=== PATIENT | female | born 1990 | race Caucasian/White ===

== ENCOUNTER 2016-09-19 14:23 | Emergency (ER) | payer OTHER ==
[~2016-09-19 14:23] MED LIST: PREN29TA PO
[2016-09-19 15:20] LABS: BACTERIA, URINE RARE /hpf; BLOOD, URINE SMALL (NEG); COMMENT (UR) CULTURE INDICATED; CULTURE IF INDICATED CULTURE INDICATED; GLUCOSE,URINE NEG (NEG); KETONE, URINE TRACE mg/dL (NEG); MUCUS URINE FEW /lpf (OCC); NITRITE,URINE NEG (NEG); SQUAMOUS EPITHELIAL CELL URINE 19 /hpf (0-5); URINE COLOR YELLOW (YELLW/STRAW)
[2016-09-19] MEDS ORDERED: CEPH-460 PO (15:33)
--- NOTE | 2016-09-19 15:33 | PD ---
HPI Chief Complaint Contractions with dysuria Date Seen: Sep 19, 2016 (Doroteo Wells MD R1) Travel History International Travel<30 Days: No Contact w/Intl Traveler<30Days: No Known Affected Area: No (Doroteo Wells MD R1) History of Present Illness HPI Ms. Richardson is a 26-year-old at 38/5 presenting to the OB ED with contractions, loss of fluid, and dysuria. She states that since this morning she 's had consistent contractions at 10 minutes and on the pain scale. She describes the pain as intense pressure in her lower abdominal area. She does endorse a loss of fluid while she took a shower this afternoon. She noticed that the fluid was yellow tinged but could not quantify it as she was in the shower. She endorses good movement with no discharge or bleeding. She also complains of dysuria with a subjective fever last night. Otherwise the has been uncomplicated and is scheduled for a repeat on with Dr. Carlson. She does endorse early marijuana and tobacco use during this . (Doroteo Wells MD R1) History Past Medical History Narrative Medical None reported (Doroteo Wells MD R1) Obstetric History Obstetric History 1- due to distress at 39 weeks (Doroteo Wells MD R1) Past Surgical History Narrative Surgical TNA (Doroteo Wells MD R1) Family History Narrative Family History None reported (Doroteo Wells MD R1) Social History Alcohol Use: No Tobacco Use: No (1 pack per day prior to , states she quit once she was ) Substance Abuse: No (marijuana use prior to , quit when she became ) (Doroteo Wells MD R1) Allergies-Medications (Allergen,Severity, Reaction): Coded Allergies: *MDRO Multi-Drug Resistant Organism (Verified Allergy, Unknown, 09/18/16) MRSA 2013 Home Meds Active Scripts Cephalexin (Keflex)500 Mg [id number] Mg PO Q8H #21 CAP Ref 0 Prov:Doroteo Wells MD R1 09/19/16 Reported Medications Vit-Iron Carbonyl ( Plus Iron 29-1 mg)1 Tab Tab1 Tab PO DAILY #30 TAB Ref 0 07/31/16 Review of Systems General / Constitutional: Fever (subjective) Eyes: No: Blurred Vision HENT: No: Headaches Cardiovascular: No: Chest Pain or Discomfort, Palpitations Respiratory: No: Cough, Short of Breath Gastrointestinal: No: Nausea, Vomiting, Diarrhea Genitourinary: Dysuria, No: Discharge, Vaginal Bleeding Musculoskeletal: No: Weakness Skin: No Rash Neurologic: No: Weakness Psychiatric: No: Substance Abuse Endocrine: No: Polydipsia Hematologic/Lymphatic: No Lymph Node Enlargement (Doroteo Wells MD R1) Physical Exam Narrative GENERAL: Well-nourished, well-developed patient. SKIN: Warm and dry. HEAD: Normocephalic and atraumatic. EYES: No scleral icterus. No injection or drainage. ENT: No nasal drainage noted. Mucous membranes pink. Airway patent. NECK: Supple, trachea midline. No JVD. CARDIOVASCULAR: Regular rate and rhythm without murmurs, gallops, or rubs. RESPIRATORY: Breath sounds equal bilaterally. No accessory muscle use. ABDOMEN/GI: Abdomen soft, non-tender, bowel sounds present, no rebound, no guarding Gravid to 38 weeks size GENITOURINARY: External Genitalia: intact and normal in appearance Cervix: Posterior Dilatation: 1-2 Effacement: 2% Station: -3 Presentation: Cephalic Membranes: Intact FHT's: Category: 1 Baseline: 130 Reactive: + Variability: Moderate Decels: None EXTREMITIES: No cyanosis or edema. BACK: Nontender without obvious deformity. No CVA tenderness. NEUROLOGICAL: Awake and alert. Motor and sensory grossly within normal limits. Five out of 5 muscle strength in all muscle groups. Normal speech. (Doroteo Wells MD R1) Data Data Vital Signs Reviewed: Yes Orders Vital Signs (Adult) .ON ADMISSION (09/19/16 14:45) ^ Labor Status (09/19/16 14:45) Urinalysis - C+S If Indicated (09/19/16 14:45) ^ Hydration (09/19/16 14:45) Mrsa Pcr Surveillance (09/19/16 14:45) (Doroteo Wells MD R1) [facility] Medical Record Reviewed: Yes Plan Ms. Richardson is a 26-year-old at 38/5 presenting to the OB ED with contractions, loss of fluid, and dysuria 1. IUP at 38w Continue routine antepartum care Category 1 tracing, reassuring Encourage oral hydration 2. Loss of fluid with contractions Cervical exam: 1-2 cm dilated, 50%, -3 station Not jill on tocometer Patient educated on signs of labor 3. Dysuria with subjective fever UA: Hazy, 30 protein, trace ketones, small occult blood, trace leukocyte esterase, 136 RBC, 8 WBC, rare bacteria Urine culture: Pending Keflex 500mg TID for 7 days Discharge: OB team will discharge patient home with prescription for Keflex for 7 days. Patient educated on signs of labor and when to return to the hospital for evaluation. She understands that she is scheduled for on 09/21/16 and knows the proper instructions prior to the procedure. DW: Dr. Carlson (Doroteo Wells MD R1) Diagnosis Diagnosis: Primary Impression: 38 weeks gestation of Additional Impression: UTI (urinary tract infection) Disposition: DISCHARGE HOME Condition: Stable Scripts Cephalexin (Keflex)500 Mg [id number] Mg PO Q8H #21 CAP Ref 0 Prov:Doroteo Wells MD R1 09/19/16 Addendum Remarks I rounded on the patient. I rounded with the resident. I reviewed the resident' s assessment and plan of care for this patient. I am in agreement with the plan of care for this patient. (Melisa Epps MD) Doroteo Wells MD R1 Sep 19, 2016 15:33 Melisa Epps MD Sep 19, 2016 17:38
[2016-10-01] MEDS ORDERED: IBUP-232 PO (14:38)
== END 2016-09-19 18:06 | disposition home or self-care (01) ==
LOC: HOBED 14:23
DX: O23.43 Unspecified infection of urinary tract in pregnancy, third trimester (principal); B96.89 Other specified bacterial agents as the cause of diseases classified elsewhere; Z3A.38 38 weeks gestation of pregnancy
CPT/HCPCS: 59025; 81001; 84112; 87086; 87641

== ENCOUNTER 2016-09-21 07:56 | Inpatient (IN) | payer OTHER ==
[~2016-09-21] VITALS: Ht 162.6 cm; Wt 80.7 kg
[~2016-09-21 07:56] MED LIST changes: +CEPH-460 PO
[2016-09-21] MEDS ORDERED: LACTATED RINGER'S 1000 ML INJ 1,000 ML IV ONE (08:36)
--- NOTE | 2016-09-21 08:36 | HHI.HP ---
HPI Chief Complaint Scheduled repeat C/S Date Seen: Sep 21, 2016 Time Seen: 08:28 (Ayo Tejeda MD R2) Travel History International Travel<30 Days: No Contact w/Intl Traveler<30Days: No Known Affected Area: No (Ayo Tejeda MD R2) History of Present Illness HPI 26-year-old presenting at 39/0 weeks gestation, for repeat . Today, she has been feeling better since starting Keflex on Saturday09/19/2016. She denies loss of fluid or vaginal bleeding. She endorses positive movement. She denies any contractions or abdominal pain. She has no allergies to medications. She had smoked marijuana and tobacco early during , however quit at 8 weeks gestation. No history of clotting or bleeding disorders. (Ayo Tejeda MD R2) History Past Medical History Medical History: Denies Significant Hx (Ayo Tejeda MD R2) Obstetric History Obstetric History Previous emergent at 39 weeks, in 2011 Transverse incision (Ayo Tejeda MD R2) Past Surgical History Narrative Surgical (Ayo Tejeda MD R2) Family History Family History: Negative (Ayo Tejeda MD R2) Social History Alcohol Use: No Tobacco Use: Yes (early in , quit at 8 weeks gestation) Substance Abuse: Yes (marijuana early in ) (Ayo Tejeda MD R2) Allergies-Medications (Allergen,Severity, Reaction): Coded Allergies: *MDRO Multi-Drug Resistant Organism (Verified Allergy, Unknown, 09/18/16) MRSA 2013 Home Meds Active Scripts Cephalexin (Keflex)500 Mg [id number] Mg PO Q8H #21 CAP Ref 0 Prov:Doroteo Wells MD R1 09/19/16 Reported Medications Vit-Iron Carbonyl ( Plus Iron 29-1 mg)1 Tab Tab1 Tab PO DAILY #30 TAB Ref 0 07/31/16 Review of Systems Except as stated in HPI: all other systems reviewed are Neg (Ayo Tejeda MD R2 ) Physical Exam Narrative GENERAL: Well-nourished, well-developed patient. SKIN: Warm and dry. HEAD: Normocephalic and atraumatic. EYES: No scleral icterus. No injection or drainage. ENT: No nasal drainage noted. Mucous membranes pink. Airway patent. NECK: Supple, trachea midline. No JVD. CARDIOVASCULAR: Regular rate and rhythm without murmurs, gallops, or rubs. RESPIRATORY: Breath sounds equal bilaterally. No accessory muscle use. BREASTS: Bilateral exam showed no masses , no retractions, no nipple discharge. ABDOMEN/GI: Abdomen soft, non-tender, bowel sounds present, no rebound, no guarding Gravid to 39 weeks GENITOURINARY: External Genitalia: intact and normal in appearance Membranes: intact Uterine Contractions: none FHT's: Category: 2 Baseline: 150 Reactive: Y Variability: moderate Decels: +/- EXTREMITIES: No cyanosis or edema. BACK: Nontender without obvious deformity. NEUROLOGICAL: Awake and alert. Motor and sensory grossly within normal limits. (Ayo Tejeda MD R2) Data Data Vital Signs Reviewed: Yes (Ayo Tejeda MD R2) Assessment/Plan Problem List: (1) UTI (urinary tract infection) (2) deliv due to previous difficult deliv, deliv, curr hospitaliz Assessment and Plan 26-year-old at 39/0 weeks gestation with previous transverse in 2011, presenting for repeat . IUP: Scheduled Cefazolin 2 g 30 minutes prior to incision Continuous heart tracing Type and cross Anticipate normal necessary and delivery. We'll discuss with Dr. Carlson (Ayo Tejeda MD R2) Addendum Remarks I rounded on the patient. I rounded with the resident. I reviewed the resident' s assessment and plan of care for this patient. I am in agreement with the plan of care for this patient. (Melisa Epps MD) Ayo Tejeda MD R2 Sep 21, 2016 08:35 Melisa Epps MD Sep 21, 2016 10:21
[2016-09-21 08:58] LABS: BASOPHIL # 0.1 TH/MM3 (0-0.2); BASOPHIL % 0.7 % (0.0-2.0); EOSINOPHIL # 0.2 TH/MM3 (0-0.4); EOSINOPHIL % 1.5 % (0.0-4.0); HEMATOCRIT 40.9 % (35.0-46.0); HEMO FLAGS DIFF FINAL; LYMPH % 16.1 % (9.0-44.0); LYMPHOCYTE # 1.8 TH/MM3 (1.0-4.8); MEAN CELL VOLUME 92.3 FL (80.0-100.0); MEAN CORPUSCULAR HEMOGLOBIN 31.2 PG (27.0-34.0); MEAN CORPUSCULAR HGB CONC 33.7 % (32.0-36.0); MONO % 9.5 % (0.0-8.0); NEUT % 72.2 % (16.0-70.0); PLATELET COUNT 208 TH/MM3 (150-450); RED BLOOD COUNT 4.43 MIL/MM3 (4.00-5.30); RED CELL DISTRIBUTION WIDTH 12.7 % (11.6-17.2); WHITE BLOOD COUNT 11.1 TH/MM3 (4.0-11.0)
[2016-09-21] MEDS ORDERED: LACTATED RINGER'S 1000 ML INJ 1,000 ML IV SCH (09:06)
[2016-09-21 09:11] LABS: BACTERIA, URINE FEW /hpf; BLOOD, URINE NEG (NEG); COMMENT (UR) CULT NOT INDICATED; CULTURE IF INDICATED CULT NOT INDICATED; GLUCOSE,URINE NEG (NEG); KETONE, URINE NEG (NEG); MUCUS URINE FEW /lpf (OCC); NITRITE,URINE NEG (NEG); SQUAMOUS EPITHELIAL CELL URINE 7 /hpf (0-5); URINE COLOR YELLOW (YELLW/STRAW)
[2016-09-21 09:30] VITALS: BP 127/82; PULSE 99
[2016-09-21] MEDS ORDERED: OXYTOCIN 10 UNIT/ML AMP ONE (09:35)
[2016-09-21] MEDS ORDERED: ceFAZolin 2 GM PREMIX 50 ML IV SCH (09:45)
[2016-09-21 10:00] VITALS: BP 131/89; PULSE 92
[2016-09-21] MEDS ORDERED: CITRIC ACID-SODIUM CITRATE LIQ 30 ML UDC PO SCH (10:15)
[2016-09-21] MEDS ORDERED: EPIDURAL-DIPHENHYDRAMINE HCL 50 MG CAP PO PRN (10:30)
[2016-09-21] MEDS ORDERED: EPIDURAL-DO NOT ADMINISTER ANTICOAGULANTS XX PRN (10:30)
[2016-09-21] MEDS ORDERED: EPIDURAL-NALOXONE HCL 0.4 MG/ML AMP IV PRN (10:30)
[2016-09-21] MEDS ORDERED: EPIDURAL-NO SYSTEMIC NARCOTICS XX PRN (10:30)
[2016-09-21] MEDS ORDERED: OXYTOCIN 30 UNITS-500ML PREMIX 500 ML IV ONE (11:45)
[2016-09-21] MEDS ORDERED: DOCUSATE SODIUM 50 MG/SENNA 8.6 MG TAB PO PRN (11:45)
[2016-09-21] MEDS ORDERED: SODIUM CHLORIDE 0.9% FLUSH 5 ML FLUSH IV PRN (11:45)
[2016-09-21] MEDS ORDERED: ZOLPIDEM TARTRATE 5 MG TAB PO PRN (11:45)
[2016-09-21] MEDS ORDERED: ACETAMINOPHEN 325 MG TAB PO PRN (11:45)
[2016-09-21] MEDS ORDERED: ONDANSETRON HCL 4 MG/2 ML VIAL IV PUSH PRN (11:45)
[2016-09-21] MEDS ORDERED: SIMETHICONE 80 MG CHEWABLE TAB PO PRN (11:45)
[2016-09-21] MEDS ORDERED: MORPHINE SULFATE PF 5 MG/10 ML VIAL ONE (11:55)
[2016-09-21] MEDS ORDERED: ONDANSETRON HCL 4 MG/2 ML VIAL ONE (11:55)
[2016-09-21] MEDS ORDERED: ACETAMINOPHEN 1000 MG/100 ML VIAL IV ONE ×2 (12:33→14:00)
[2016-09-21 12:49] VITALS: BP 128/81; PULSE 75; RESP 18; TEMP 97.8; O2SAT 97
--- NOTE | 2016-09-21 12:53 | PD.OP ---
Operative Report Date of Surgery: Sep 21, 2016 Preoperative Diagnosis: Intrauterine at 39 weeks Previous section Postoperative Diagnosis: Same Face presentation Procedure: Repeat low segment transverse section Vacuum-assisted delivery Anesthesia: Spinal Surgeon: Melisa Carlson Director Of Payroll(s): OR staff Resident Surgeon: Dr. Tamia Rushing Operation and Findings: Anesthesia: (Spinal ) Anesthesiologist:: (Dr Daniel ) Estimated blood loss: (600 cc ) Sponge and instrument count: (Correct ) Drains: ( None) Complications: (None) Indications for procedure: (Previous 1 declines ) Findings: (Viable male weight 7 lbs. 3 oz. equaling 3275 g Apgars of 7 at 1 minute 9 at 5 minutes Face presentation which required vacuum assistance to rotate the caput ) Timeout done The patient was taken to the operating room after appropriate levels of spinal anesthesia were achieved she was placed in the supine position. A Chaney catheter was inserted under sterile conditions and draining adequate clear urine. Intermittent compression hoses were placed and functioning. Bovie pad was placed and grounded. The abdomen was shaved prepped and draped in the usual sterile fashion. A transverse Pfannenstiel incision was made carried down through the skin subcutaneous tissue. The fascia was opened transversely. from the muscles in the midline. The rectus muscles were . Peritoneal cavity opened and the abdominal cavity entered. Upon entering the abdomen patient had multiple adhesions the bladder was pulled up high on the uterus requiring lysis of adhesions The bladder flap was taken down transversely and a low segment transverse incision made into the lower uterine segment. The fluid was (clear ). The infant was a face presentation which required a Kiwi vacuum on the flexion point to rotate the vertex The vertex was delivered nose and mouth suctioned well the remainder of the body was then delivered. Cord doubly clamped and cut and the handed over to the awaiting nursing staff. The placenta spontaneously delivered intact with fundal massage. The uterus was then exteriorized cleaned of excessive blood and debris. The incision was then closed with 0 chromic in a continuous interlocking stitch. Single-layer closure No active bleeding. Tubes and ovaries were inspected and found to be normal. The abdominal cavity was then irrigated. The uterus placed back into the abdomen. Paracolic gutters cleaned of excessive blood and debris. Interceed was then placed over the incision and the anterior surface of the uterus in an inverted T. The peritoneum was then closed with 2-0 Vicryl. The muscles reapproximated. Inspection of the muscle bed demonstrated no bleeding. . The fascia was then closed with 0 Vicryl in a continuous stitch. The subcutaneous tissue was irrigated bleeders controlled with Bovie. Brittany's fascia closed with 2-0 Vicryl. The skin was closed using ( subcuticular stitch with 3-0 Monocryl). The uterus was massaged clearing blood and clots. The patient was cleaned. Pressure dressing and abdominal binder placed. Patient then transferred to the recovery room in stable condition, where her vital signs are stable ( ). Urine is clear and adequate. Baby transferred to the nursery in stable condition. Melisa Epps MD Sep 21, 2016 12:53
[2016-09-21 14:30] VITALS: BP 122/70; PULSE 75; RESP 16; TEMP 97.9
[2016-09-21] MEDS: EPIDURAL-DIPHENHYDRAMINE HCL 50 MG/ML VIAL IV PUSH PRN (17:57)
[2016-09-21] MEDS ORDERED: PROMETHAZINE INJ 25 MG/ML VIAL IM PRN (18:30)
[2016-09-21] MEDS ORDERED: KETOROLAC TROMETHAMINE 30 MG/ML (IVP) VIAL IV PUSH PRN (19:00)
--- NOTE | 2016-09-21 19:05 | HHI.PCNN ---
Objective Patient Weight 80.739 kg Exam General Appearance: Appropriate for Gestational Age Skin: Normal Jaundice: No Head: Normal Eyes Red Reflex: Normal Ears, Nose & Throat: Normal Thorax: Normal Lungs: Normal Heart: Normal Peripheral Pulses: Normal Abdomen: Normal Genitals: Normal Trunk and Spine: Normal Extremities: Normal Clavicles: Normal Hips: Stable Anus: Normal Impression Condition on Discharge Stable Mathew Hart MD R1 Sep 21, 2016 19:05
[2016-09-21 19:58] VITALS: BP 114/72; PULSE 84; RESP 18; TEMP 98.5
[2016-09-21] MEDS: LACTATED RINGER'S 1000 ML INJ 1,000 ML IV SCH (20:01)
[2016-09-21] MEDS: SODIUM CHLORIDE 0.9% FLUSH 5 ML FLUSH IV SCH (20:01)
[2016-09-21] MEDS: oxyCODONE/ACETAMINOPHEN 5 MG/325 MG TAB PO PRN (21:21)
[2016-09-21] MEDS ORDERED: OXYTOCIN 30 UNITS-500ML PREMIX 500 ML IV PRN (21:45)
[2016-09-21 23:30] VITALS: BP 102/69; PULSE 94; RESP 18; TEMP 98.8
[2016-09-22 04:00] VITALS: BP 127/66; PULSE 95; RESP 18; TEMP 98.3
[2016-09-22] MEDS: EPIDURAL-DIPHENHYDRAMINE HCL 50 MG/ML VIAL IV PUSH PRN (04:22)
[2016-09-22] MEDS: oxyCODONE/ACETAMINOPHEN 5 MG/325 MG TAB PO PRN ×4 (04:22→21:24)
[2016-09-22] MEDS: IBUPROFEN 600 MG TAB PO PRN ×3 (04:22→15:59)
[2016-09-22] MEDS: LACTATED RINGER'S 1000 ML INJ 1,000 ML IV SCH (04:23)
[2016-09-22 05:45] LABS: AUTOMATED NEUTROPHIL # 10.4 TH/MM3 (1.8-7.7); BASOPHIL # 0.1 TH/MM3 (0-0.2); BASOPHIL % 0.6 % (0.0-2.0); EOSINOPHIL # 0.1 TH/MM3 (0-0.4); HEMATOCRIT 36.3 % (35.0-46.0); HEMO FLAGS DIFF FINAL; LYMPH % 9.6 % (9.0-44.0); LYMPHOCYTE # 1.3 TH/MM3 (1.0-4.8); MEAN CELL VOLUME 91.9 FL (80.0-100.0); MEAN CORPUSCULAR HEMOGLOBIN 31.2 PG (27.0-34.0); MONO % 9.7 % (0.0-8.0); NEUT % 79.1 % (16.0-70.0); PLATELET COUNT 189 TH/MM3 (150-450); RED BLOOD COUNT 3.95 MIL/MM3 (4.00-5.30); RED CELL DISTRIBUTION WIDTH 12.7 % (11.6-17.2); WHITE BLOOD COUNT 13.1 TH/MM3 (4.0-11.0)
--- NOTE | 2016-09-22 09:20 | HHI.OB ---
Subjective Post Operative Day: 1 Remarks Postoperative day number 1. AFVSS overnight. Pain controlled. Incision not draining. Decreased lochia. Denies dysuria. No breast tenderness. She is feeding the baby via breast. Appetite good. No nausea or vomiting. Positive flatus. Negative bowel movement. Ambulating well. Denies calf pain, shortness of breath, or cough. Otherwise, she is doing well this morning and has no other complaints. Objective Vitals/I&O Vital Signs Date Time Temp Pulse Resp B/P Pulse Ox O2 Delivery O2 Flow Rate FiO2 09/22/16 04:00 98.3 95 18 127/66 09/21/16 23:30 98.8 94 18 09/21/16 23:30 102/69 09/21/16 19:58 98.5 84 18 114/72 09/21/16 14:30 97.9 75 16 122/70 09/21/16 12:49 97.8 18 97 09/21/16 12:49 75 128/81 09/21/16 10:00 92 131/89 09/21/16 09:30 99 127/82 Result Diagram: 09/22/16 0536 Objective Remarks GENERAL: Well-nourished, well-developed patient. CARDIOVASCULAR: Regular rate and rhythm without murmurs, gallops, or rubs. RESPIRATORY: Breath sounds equal bilaterally. No accessory muscle use. ABDOMEN/GI: Abdomen soft, non-tender, bowel sounds present. Incision: Clean, dry and intact. Fundus: Firm, non-tender at umbilicus. GENITOURINARY: Light to moderate bleeding. EXTREMITIES: No cyanosis or edema, non-tender, without signs of DVT. Medications and IVs Current Medications Medications (Trade) Dose Ordered Sig/Lucinda Route Start Time Stop Time Status Last Admin (Lr 1000 ml Inj) 1,000 ml @ 100 mls/hr Q10H IV 09/21/16 16:41 09/22/16 12:40 09/22/16 04:23 (NS Flush) 2 ml BID IV 09/21/16 21:00 (NS Flush) 2 ml UNSCH PRN IV 09/21/16 11:45 09/22/16 04:37 (Mylicon Chew) 80 mg QID PRN PO 09/21/16 11:45 (Tylenol) 650 mg Q6H PRN PO 09/21/16 11:45 (Motrin) 600 mg Q6H PRN PO 09/21/16 11:45 09/22/16 04:22 (Percocet 5-325 Mg) 1 tab Q4H PRN PO 09/21/16 11:45 09/22/16 04:22 (Percocet 5-325 Mg) 2 tab Q4H PRN PO 09/21/16 11:45 (Apryl-Colace) 2 tab Q12H PRN PO 09/21/16 11:45 (Ambien) 5 mg HS PRN PO 09/21/16 11:45 (M-M-R Ii Inj) 0.5 ml ONCE ONCE SQ 09/22/16 16:00 09/22/16 16:01 (Boostrix Inj) 0.5 ml ONCE ONCE IM 09/22/16 16:00 09/22/16 16:01 (Zofran Inj) 4 mg Q6H PRN IV PUSH 09/21/16 11:45 09/21/16 14:26 Miscellaneous Information NO SYSTEMIC NARCOTICS TO BE GIVEN FO... UNSCH PRN XX 09/21/16 10:30 09/22/16 10:29 (Narcan Inj) 0.4 mg UNSCH PRN IV 09/21/16 10:30 09/22/16 10:29 (Benadryl Inj) 25 mg Q6H PRN IV PUSH 09/21/16 10:30 09/22/16 10:29 09/22/16 04:22 (Benadryl) 50 mg Q6H PRN PO 09/21/16 10:30 09/22/16 10:29 Miscellaneous Information ALL NURSING DEPARTMENTS UNSCH PRN XX 09/21/16 10:30 09/22/16 10:29 (Toradol Inj) 30 mg Q6H PRN IV PUSH 09/21/16 19:00 09/21/16 21:20 (Phenergan Inj) 25 mg Q4H PRN IM 09/21/16 18:30 Assessment/Plan Problem List: (1) UTI (urinary tract infection) (2) deliv due to previous difficult deliv, deliv, curr hospitaliz Assessment and Plan 26 y/o female who is POD# 1 s/p CXN. -Continue routine care. -Percocet and Motrin PRN pain. -Encouraged OOB. Advised pelvic rest for 6 wks. Will need a f/u appt. in 1 wk for incision check. -Re: ctrl, she is undecided at this time. -D/c in 1-2 more days. wdw OB attending Discharge Planning Discharge home in next 1-[address] MD R2 Sep 22, 2016 09:20
[2016-09-22] MEDS ORDERED: DIPHTH/TETANUS/ACEL PERTUSSIS (BOOSTER) 0.5 ML VIAL/PFS IM ONE (16:00)
[2016-09-22] MEDS ORDERED: MEASLES, MUMPS, RUBELLA VACCINE 0.5 ML VIAL SQ ONE (16:00)
[2016-09-22 21:00] VITALS: BP 115/66; PULSE 84; RESP 16; TEMP 98.1
[2016-09-23] MEDS: IBUPROFEN 600 MG TAB PO PRN ×3 (04:09→16:16)
[2016-09-23] MEDS: oxyCODONE/ACETAMINOPHEN 5 MG/325 MG TAB PO PRN ×4 (04:09→21:40)
[2016-09-23 08:15] VITALS: BP 137/71; PULSE 84; RESP 18; TEMP 98.4
--- NOTE | 2016-09-23 08:17 | HHI.OB ---
Subjective Post Operative Day: 2 Remarks Postoperative day number 2. AFVSS overnight. Pain controlled. Incision not draining. Decreased lochia. Denies dysuria. No breast tenderness. She is feeding the baby via bottle. Appetite good. No nausea or vomiting. Positive flatus. Negative bowel movement. Ambulating well. Denies calf pain, shortness of breath, or cough. Otherwise, she is doing well this morning and has no other complaints. Objective Vitals/I&O Vital Signs Date Time Temp Pulse Resp B/P Pulse Ox O2 Delivery O2 Flow Rate FiO2 09/22/16 21:00 84 115/66 09/22/16 21:00 98.1 16 Result Diagram: 09/22/16 0536 Objective Remarks GENERAL: Well-nourished, well-developed patient. CARDIOVASCULAR: Regular rate and rhythm without murmurs, gallops, or rubs. RESPIRATORY: Breath sounds equal bilaterally. No accessory muscle use. ABDOMEN/GI: Abdomen soft, non-tender, bowel sounds present. Incision: Clean, dry and intact. Fundus: Firm, non-tender at umbilicus. GENITOURINARY: Light to moderate bleeding. EXTREMITIES: No cyanosis or edema, non-tender, without signs of DVT. Medications and IVs Current Medications Medications (Trade) Dose Ordered Sig/Lucinda Route Start Time Stop Time Status Last Admin (NS Flush) 2 ml BID IV 09/21/16 21:00 (NS Flush) 2 ml UNSCH PRN IV 09/21/16 11:45 09/22/16 04:37 (Mylicon Chew) 80 mg QID PRN PO 09/21/16 11:45 (Tylenol) 650 mg Q6H PRN PO 09/21/16 11:45 (Motrin) 600 mg Q6H PRN PO 09/21/16 11:45 09/23/16 04:09 (Percocet 5-325 Mg) 1 tab Q4H PRN PO 09/21/16 11:45 09/22/16 15:59 (Percocet 5-325 Mg) 2 tab Q4H PRN PO 09/21/16 11:45 09/23/16 04:09 (Apryl-Colace) 2 tab Q12H PRN PO 09/21/16 11:45 (Ambien) 5 mg HS PRN PO 09/21/16 11:45 (Zofran Inj) 4 mg Q6H PRN IV PUSH 09/21/16 11:45 09/21/16 14:26 (Toradol Inj) 30 mg Q6H PRN IV PUSH 09/21/16 19:00 09/21/16 21:20 (Phenergan Inj) 25 mg Q4H PRN IM 09/21/16 18:30 Assessment/Plan Problem List: (1) UTI (urinary tract infection) (2) deliv due to previous difficult deliv, deliv, curr hospitaliz Assessment and Plan 26 y/o female who is POD# 2 s/p CXN. -Continue routine care. -Percocet and Motrin PRN pain. -Encouraged OOB. Advised pelvic rest for 6 wks. Will need a f/u appt. in 1 wk for incision check. -Re: ctrl, she is undecided at this time. -D/c planned for tomorrow wdw OB attending Discharge Planning Discharge home planned for tomorrow To Lane MD R2 Sep 23, 2016 08:17
[2016-09-23] MEDS: SODIUM CHLORIDE 0.9% FLUSH 5 ML FLUSH IV SCH (09:00)
--- NOTE | 2016-09-23 09:09 | HHI.OB ---
Subjective Post Operative Day: 2 Remarks Postoperative day 2 the scheduled patient with repeat done 2 days ago. She is doing well progress advancement of diet and ambulation showed no sign of pulmonary or thromboembolic complication she is tolerating her diet ambulating well and as normal bowel and bladder function, seen the patient with the family medicine residents and agree with their evaluation plan this patient to be discharged tomorrow Objective Vitals/I&O Vital Signs Date Time Temp Pulse Resp B/P Pulse Ox O2 Delivery O2 Flow Rate FiO2 09/23/16 08:15 84 18 137/71 09/23/16 08:15 98.4 09/22/16 21:00 84 115/66 09/22/16 21:00 98.1 16 Result Diagram: 09/22/16 0536 Objective Remarks GENERAL: Well-nourished, well-developed patient. CARDIOVASCULAR: Regular rate and rhythm without murmurs, gallops, or rubs. RESPIRATORY: Breath sounds equal bilaterally. No accessory muscle use. ABDOMEN/GI: Abdomen soft, non-tender, bowel sounds present. Incision: Clean, dry and intact. Fundus: Firm, non-tender at umbilicus. GENITOURINARY: Light to moderate bleeding. EXTREMITIES: No cyanosis or edema, non-tender, without signs of DVT. Medications and IVs Current Medications Medications (Trade) Dose Ordered Sig/Lucinda Route Start Time Stop Time Status Last Admin (NS Flush) 2 ml BID IV 09/21/16 21:00 (NS Flush) 2 ml UNSCH PRN IV 09/21/16 11:45 09/22/16 04:37 (Mylicon Chew) 80 mg QID PRN PO 09/21/16 11:45 (Tylenol) 650 mg Q6H PRN PO 09/21/16 11:45 (Motrin) 600 mg Q6H PRN PO 09/21/16 11:45 09/23/16 04:09 (Percocet 5-325 Mg) 1 tab Q4H PRN PO 09/21/16 11:45 09/22/16 15:59 (Percocet 5-325 Mg) 2 tab Q4H PRN PO 09/21/16 11:45 09/23/16 04:09 (Apryl-Colace) 2 tab Q12H PRN PO 09/21/16 11:45 (Ambien) 5 mg HS PRN PO 09/21/16 11:45 (Zofran Inj) 4 mg Q6H PRN IV PUSH 09/21/16 11:45 09/21/16 14:26 (Toradol Inj) 30 mg Q6H PRN IV PUSH 09/21/16 19:00 09/21/16 21:20 (Phenergan Inj) 25 mg Q4H PRN IM 09/21/16 18:30 Assessment/Plan Problem List: (1) UTI (urinary tract infection) (2) deliv due to previous difficult deliv, deliv, curr hospitaliz Assessment and Plan 26 y/o female who is POD# 2 s/p CXN. -Continue routine care. -Percocet and Motrin PRN pain. -Encouraged OOB. Advised pelvic rest for 6 wks. Will need a f/u appt. in 1 wk for incision check. -Re: ctrl, she is undecided at this time. -D/c planned for tomorrow wdw OB attending Discharge Planning Discharge home planned for tomorrow Solomon Burrell II, MD Sep 23, 2016 09:09
[2016-09-24] MEDS: oxyCODONE/ACETAMINOPHEN 5 MG/325 MG TAB PO PRN ×2 (03:04→07:50)
[2016-09-24] MEDS: IBUPROFEN 600 MG TAB PO PRN (03:05)
[2016-09-24 07:50] VITALS: BP 130/85; PULSE 78; RESP 18; TEMP 98.3
[2016-09-24] MEDS ORDERED: SIME80CH PO (09:27)
[2016-09-24] MEDS ORDERED: SENN1TAB PO (09:27)
[2016-09-24] MEDS ORDERED: OXYC1TAB63 PO ×3 (09:27→10:06)
--- NOTE | 2016-09-24 09:27 | HHI.DCPOC ---
Discharge Care Plan Diagnosis: (1) deliv due to previous difficult deliv, deliv, curr hospitaliz (2) UTI (urinary tract infection) (3) with 30 completed weeks gestation Goals to Promote Your Health * To prevent worsening of your condition and complications * To maintain your health at the optimal level Directions to Meet Your Goals Take your medications as prescribed Follow your dietary instruction Follow activity as directed Keep your appointments as scheduled Take your immunizations and boosters as scheduled If your symptoms worsen call your PCP, if no PCP go to Urgent Care Center or Emergency Room Smoking is Dangerous to Your Health. Avoid second hand smoke Call the 24-hour hour crisis hotline for domestic abuse at Jhoan Warren MD R1 Sep 24, 2016 09:27
--- NOTE | 2016-09-24 09:50 | HHI.OB ---
Subjective Remarks 26 y/o POD 3 after . Doing well this morning. Walking around. Lochia is light. Had bowel movement. No calf tenderness. No chest pain or shortness of breath. No problems with the incision site. She has appt with Ela Hackett. Formula feeding, educated on benefits of . She is willing to give it a try. Undecided on control. (Mathew Grossman MD R2) Objective Result Diagram: 09/22/16 0536 Objective Remarks GENERAL: Well-nourished, well-developed patient. CARDIOVASCULAR: Regular rate and rhythm without murmurs, gallops, or rubs. RESPIRATORY: Breath sounds equal bilaterally. No accessory muscle use. ABDOMEN/GI: Abdomen soft, non-tender, bowel sounds present. Incision: Clean, dry and intact. Fundus: Firm, non-tender at umbilicus. GENITOURINARY: Light bleeding. EXTREMITIES: No cyanosis or edema, non-tender, without signs of DVT. Medications and IVs Current Medications Medications (Trade) Dose Ordered Sig/Lucinda Route Start Time Stop Time Status Last Admin (NS Flush) 2 ml BID IV 09/21/16 21:00 (NS Flush) 2 ml UNSCH PRN IV 09/21/16 11:45 09/22/16 04:37 (Mylicon Chew) 80 mg QID PRN PO 09/21/16 11:45 (Tylenol) 650 mg Q6H PRN PO 09/21/16 11:45 (Motrin) 600 mg Q6H PRN PO 09/21/16 11:45 09/24/16 03:05 (Percocet 5-325 Mg) 1 tab Q4H PRN PO 09/21/16 11:45 09/24/16 07:50 (Percocet 5-325 Mg) 2 tab Q4H PRN PO 09/21/16 11:45 09/24/16 03:04 (Apryl-Colace) 2 tab Q12H PRN PO 09/21/16 11:45 09/24/16 07:51 (Ambien) 5 mg HS PRN PO 09/21/16 11:45 (Zofran Inj) 4 mg Q6H PRN IV PUSH 09/21/16 11:45 09/21/16 14:26 (Toradol Inj) 30 mg Q6H PRN IV PUSH 09/21/16 19:00 09/21/16 21:20 (Phenergan Inj) 25 mg Q4H PRN IM 09/21/16 18:30 (Mathew Grossman MD R2) Assessment/Plan Problem List: (1) UTI (urinary tract infection) (2) deliv due to previous difficult deliv, deliv, curr hospitaliz Assessment and Plan 26 y/o female who is POD# 3 s/p CXN. -Percocet and Motrin PRN pain. -Encouraged OOB. Advised pelvic rest for 6 wks. Will need a f/u appt. in 1 wk for incision check. -Re: ctrl, she is undecided at this time. -D/c today. discussed with Dr. Niño Discharge Planning Discharge home planned for today (Mathew Grossman MD R2) Attending Attestation The exam, history, and the medical decision-making described in the above note were completed with the assistance of the resident provider. I reviewed and agree with the findings presented. I attest that I had a [id number] encounter with the patient on the same day, and personally performed and documented my assessment and findings in the medical record. (Rafa Niño MD) Mathew Grossman MD R2 Sep 24, 2016 09:50 Rafa Niño MD Sep 24, 2016 10:00
[2016-10-01] MEDS ORDERED: IBUP-232 PO (14:38)
== END 2016-09-24 14:07 | disposition home or self-care (01) | DRG 765 ==
LOC: H2EB 07:56 → H1EA 13:47
PROVIDERS: ADMIT Obstetrics & Gynecology; ATTEND Obstetrics & Gynecology
PROC: 10D00Z1 Extraction of Products of Conception, Low, Open Approach (ICD-10-PCS; principal; 2016-09-21)
PROC: 0UN90ZZ Release Uterus, Open Approach (ICD-10-PCS; 2016-09-21)
DX: O34.211 Maternal care for low transverse scar from previous cesarean delivery (principal); O23.43 Unspecified infection of urinary tract in pregnancy, third trimester; O32.3XX0 Maternal care for face, brow and chin presentation, not applicable or unspecified; O99.89 Other specified diseases and conditions complicating pregnancy, childbirth and the puerperium; N73.6 Female pelvic peritoneal adhesions (postinfective); Z37.0 Single live birth; Z3A.39 39 weeks gestation of pregnancy
CPT/HCPCS: 59025; 81001; 84112; 85025; 86850; 86900; 86901; 87086; 87641; C1765; J0131; J0690; J1200; J1885; J2274; J2405; J2590; J7120; Q0163

== ENCOUNTER 2016-10-02 03:26 | Emergency (ER) | payer OTHER ==
[~2016-10-02 03:26] MED LIST changes: +IBUP-232 PO; +OXYC1TAB63 PO; +SENN1TAB PO; +SIME80CH PO
[2016-10-02 03:28] VITALS: BP 119/72; PULSE 77; RESP 18; TEMP 98.2; O2SAT 99
[2016-10-02] MEDS ORDERED: SODIUM CHLORIDE 0.9% FLUSH 5 ML FLUSH IVF PRN (03:45)
[2016-10-02 04:12] VITALS: RESP 16; O2SAT 98
[2016-10-02 05:17] LABS: AUTOMATED NEUTROPHIL # 10.5 TH/MM3 (1.8-7.7); BASOPHIL # 0.1 TH/MM3 (0-0.2); BASOPHIL % 0.5 % (0.0-2.0); EOSINOPHIL # 0.3 TH/MM3 (0-0.4); EOSINOPHIL % 2.4 % (0.0-4.0); HEMATOCRIT 45.8 % (35.0-46.0); HEMO FLAGS DIFF FINAL; LYMPH % 13.7 % (9.0-44.0); LYMPHOCYTE # 1.9 TH/MM3 (1.0-4.8); MEAN CELL VOLUME 93.5 FL (80.0-100.0); MEAN CORPUSCULAR HEMOGLOBIN 31.9 PG (27.0-34.0); MEAN CORPUSCULAR HGB CONC 34.1 % (32.0-36.0); MONO % 8.4 % (0.0-8.0); PLATELET COUNT 412 TH/MM3 (150-450); RED CELL DISTRIBUTION WIDTH 12.4 % (11.6-17.2)
[2016-10-02] MEDS ORDERED: IOHEXOL 350 MG/ML 10 ML VIAL (for RAD DIAG) IV ONE (05:25)
[2016-10-02 05:27] LABS: BACTERIA, URINE RARE /hpf; BLOOD, URINE MOD (NEG); COMMENT (UR) CULTURE INDICATED; CULTURE IF INDICATED CULTURE INDICATED; GLUCOSE,URINE NEG (NEG); HYALINE CAST, URINE 1 /lpf (RARE); KETONE, URINE NEG (NEG); MUCUS URINE FEW /lpf (OCC); NITRITE,URINE NEG (NEG); RENAL EPITHELIAL CELLS <1 /hpf; SQUAMOUS EPITHELIAL CELL URINE 2 /hpf (0-5); URINE COLOR YELLOW (YELLW/STRAW)
--- NOTE | 2016-10-02 05:28 | PD ---
HPI Chief Complaint: Abdominal Pain Time Seen by Provider: 03:33 Travel History International Travel<30 days: No Contact w/Intl Traveler<30days: No History of Present Illness HPI 26 yo F s/p repeat 11 days prior c/o lower abd pain w radiation to L flank. VB started this morning, reportedly bright red, < 1 pad. pain severe starting while the pt was asleep. pt also c/o pleuritic cp without dyspnea. no fever. no n/v/d. 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 [facility] Past Medical History Bipolar Disorder: Yes Anxiety: Yes Diminished Hearing: No Kidney Stones: Yes Respiratory: Yes (BABY ASTHMA) Tetanus Vaccination: Unknown Influenza Vaccination: No ?: Unknown : 2 Para: 2 Past Surgical History Section: Yes (X2) Tonsillectomy: Yes Social History Alcohol Use: No Tobacco Use: Yes (early in , quit at 8 weeks gestation) Substance Use: No (Marijuana ) Allergies-Medications (Allergen,Severity, Reaction): Coded Allergies: *MDRO Multi-Drug Resistant Organism (Verified Allergy, Unknown, 09/18/16) MRSA 2013 Reported Meds & Prescriptions Reported Meds & Active Scripts Active Ibuprofen 600 Mg Tab 600 Mg PO Q6H PRN Senna Plus 8.6-50 mg (Sennosides-Docusate Sodium) 1 Tab Tab 2 Tab PO Q12H PRN Simethicone 80 Mg Chw 80 Mg PO QID PRN Keflex (Cephalexin) 500 Mg Cap 500 Mg PO Q8H Reported Oxycodone-Acetaminophen 5-325 mg Tab 1 Tab PO Q6H PRN Plus Iron 29-1 mg ( Vit-Iron Carbonyl) 1 Tab Tab 1 Tab PO DAILY Review of Systems Except as stated in HPI: all other systems reviewed are Neg General / Constitutional: No: Fever, Chills Cardiovascular: Positive: Chest Pain or Discomfort Gastrointestinal: Positive: Abdominal Pain Physical Exam Narrative GENERAL: 26 yo F, WNWD, NAD : Minimal tenderness throughout the vault. Red blood/fluid in vault. SKIN: Warm and dry. HEAD: Atraumatic. Normocephalic. EYES: Pupils equal and round. No scleral icterus. No injection or drainage. ENT: No nasal bleeding or discharge. Mucous membranes pink and moist. NECK: Trachea midline. No JVD. CARDIOVASCULAR: Regular rate and rhythm. RESPIRATORY: No accessory muscle use. Clear to auscultation. Breath sounds equal bilaterally. GASTROINTESTINAL: Soft. Diffuse tenderness to palpation. MUSCULOSKELETAL: Extremities without clubbing, cyanosis, or edema. No obvious deformities. NEUROLOGICAL: Awake and alert. No obvious cranial nerve deficits. Motor grossly within normal limits. Five out of 5 muscle strength in the arms and legs. Normal speech. PSYCHIATRIC: Appropriate mood and affect; insight and judgment normal. Data Data Last Documented VS Vital Signs Date Time Temp Pulse Resp B/P Pulse Ox O2 Delivery O2 Flow Rate FiO2 10/02/16 04:12 16 98 Room Air 10/02/16 03:28 98.2 77 Orders Complete Blood Count With Diff (10/02/16 03:44) Urinalysis - C+S If Indicated (10/02/16 03:44) Ct Abd/Pel W Iv Contrast(Rout) (10/02/16 03:44) Iv Access Insert/Monitor (10/02/16 03:44) Ecg Monitoring (10/02/16 03:44) Oximetry (10/02/16 03:44) Sodium Chloride 0.9% Flush (Ns Flush) (10/02/16 03:45) Electrocardiogram (10/02/16 03:44) Troponin I (10/02/16 03:44) Ct Pulmonary Angiogram (10/02/16 03:44) Ed Urine Pregnancytest Poc (10/02/16 03:44) Comprehensive Metabolic Panel (10/02/16 03:44) Lipase (10/02/16 03:44) Iohexol 350 Inj (Omnipaque 350 Inj) (10/02/16 05:25) Urine Culture (10/02/16 04:45) Labs Laboratory Tests Test 10/02/16 10/02/16 04:45 04:50 Urine Color YELLOW Urine Turbidity CLEAR Urine pH 6.0 Urine Specific [employer] 1.013 Urine Protein NEG mg/dL Urine Glucose (UA) NEG mg/dL Urine Ketones NEG mg/dL Urine Occult Blood MOD Urine Nitrite NEG Urine Bilirubin NEG Urine Urobilinogen LESS THAN 2.0 MG/DL Urine Leukocyte Esterase MOD Urine RBC 127 /hpf Urine WBC 8 /hpf Urine Squamous Epithelial 2 /hpf Cells Urine Renal Epithelial Cells <1 /hpf Urine Bacteria RARE /hpf Urine Hyaline Casts 1 /lpf Urine Mucus FEW /lpf Microscopic Urinalysis Comment CULTURE INDICATED White Blood Count 14.0 TH/MM3 Red Blood Count 4.90 MIL/MM3 Hemoglobin 15.7 GM/DL Hematocrit 45.8 % Mean Corpuscular Volume 93.5 FL Mean Corpuscular Hemoglobin 31.9 PG Mean Corpuscular Hemoglobin 34.1 % Concent Red Cell Distribution Width 12.4 % Platelet Count 412 TH/MM3 Mean Platelet Volume 9.4 FL Neutrophils (%) (Auto) 75.0 % Lymphocytes (%) (Auto) 13.7 % Monocytes (%) (Auto) 8.4 % Eosinophils (%) (Auto) 2.4 % Basophils (%) (Auto) 0.5 % Neutrophils # (Auto) 10.5 TH/MM3 Lymphocytes # (Auto) 1.9 TH/MM3 Monocytes # (Auto) 1.2 TH/MM3 Eosinophils # (Auto) 0.3 TH/MM3 Basophils # (Auto) 0.1 TH/MM3 CBC Comment DIFF FINAL Differential Comment Sodium Level 143 MEQ/L Potassium Level 3.7 MEQ/L Chloride Level 104 MEQ/L Carbon Dioxide Level 26.3 MEQ/L Anion Gap 13 MEQ/L Blood Urea Nitrogen 17 MG/DL Creatinine 0.83 MG/DL Estimat Glomerular Filtration 84 ML/MIN Rate Random Glucose 83 MG/DL Calcium Level 9.2 MG/DL Total Bilirubin 0.2 MG/DL Aspartate Amino Transf 39 U/L (AST/SGOT) Alanine Aminotransferase 39 U/L (ALT/SGPT) Alkaline Phosphatase 169 U/L Troponin I LESS THAN 0.02 NG/ML Total Protein 8.0 GM/DL Albumin 3.2 GM/DL Lipase 177 U/L [facility] Medical Decision Making Medical Screen Exam Complete: Yes Emergency Medical Condition: Yes Medical Record Reviewed: Yes Differential Diagnosis Acute anemia, hemorrhage, UTI, PE, pneumothorax, pneumonia, atelectasis Narrative Course CBC & BMP Diagram 10/02/16 04:50 LFTs normal UA: hematuria Lipase normal Tn < 0.02 Last [address] Angiography 10/02/16343 Signed Impressions: Service Date/Time: Sunday, October 02, 2016 05:11 - CONCLUSION: Normal examination. Yakov Koo MD Abdomen/Pelvis CT 10/02/164 Signed Impressions: Service Date/Time: Sunday, October 02, 2016 05:11 - CONCLUSION: Post uterus. Bladder findings as above. Gallstones. Yakov Koo MD Pt has rested comfortably throughout ER stay. D/w Dr Delacruz, OB Hospitalist. Pt to follow up with [facility]. Return precautions discussed. Diagnosis Primary Impression: Vaginal bleeding Additional Impression: Chest pain Qualified Code: R07.1 - Chest pain on breathing Referrals: [facility] 1 day Additional Instructions: You have a choice when it comes to health care, and we are glad that you chose [facility]. Hopefully, we have met your expectations on today's visit. You are welcome to return to [facility] at any time, as we are committed to meeting the health care needs of our community. Med/Other Pt SpecificInfo: No Change to Meds Disposition: 01 DISCHARGE HOME Condition: John Valadez MD Oct 02, 2016 05:28
[2016-10-02 05:35] LABS: ANION GAP 13 MEQ/L (5-15); AST (GOT) 39 U/L (15-37); BICARBONATE 26.3 MEQ/L (21.0-32.0); BLOOD UREA NITROGEN 17 MG/DL (7-18); CHLORIDE 104 MEQ/L (98-107); GLOMERULAR FILTRATION RATE 84 ML/MIN (>89); POTASSIUM 3.7 MEQ/L (3.5-5.1); SODIUM (NA) 143 MEQ/L (136-145)
[2016-10-02 05:40] LABS: ALKALINE PHOSPHATASE 169 U/L (45-117); ALT (GPT) 39 U/L (10-53); TOTAL BILIRUBIN ADULT 0.2 MG/DL (0.2-1.0)
--- NOTE | 2016-10-02 05:48 | RADRPT ---
EXAM DATE/TIME: 10/02/2016 05:11 [facility] COMPARISON: No previous studies available for comparison. INDICATIONS : Chest pain and short of breath. IV CONTRAST: 80 cc Omnipaque 350 (iohexol) IV ; Cumulative dose for multiple exams. RADIATION DOSE: 23.21 CTDIvol (mGy) MEDICAL HISTORY : Renal calculi. Methicillin-resistant Staphylococcus aureus. SURGICAL HISTORY : section. ENCOUNTER: Initial ACUITY: 1 day PAIN SCALE: 9/10 LOCATION: chest TECHNIQUE: Volumetric scanning of the chest was performed using a pulmonary embolism protocol MIP images were re constructed. Using automated exposure control and adjustment of the mA and/or kV according to patien t size, radiation dose was kept as low as reasonably achievable to obtain optimal diagnostic quality images. FINDINGS: PULMONARY ARTERIES: No filling defects are seen in the pulmonary arteries through the segmental level. LUNGS: There is no consolidation or pneumothorax . No concerning pulmonary nodule is visualized. PLEURAE: There is no pleural thickening or pleural effusion. MEDIASTINUM: There is good visualization of the great vessels of the middle mediastinum. No evidence of mediastin al or hilar adenopathy/mass. MUSCULOSKELETAL: Within normal limits for patient age. MISCELLANEOUS: The visualized upper abdominal organs demonstrate no acute abnormality. CONCLUSION: Normal examination. Yakov Koo MD on October 02, 2016 at 5:44 Board Certified Radiologist. This report was verified electronically.
--- NOTE | 2016-10-02 05:57 | RADRPT ---
EXAM DATE/TIME: 10/02/2016 05:11 [facility] COMPARISON: CT ABDOMEN & PELVIS W/O CONTRAST, December 29, 2014, 13:04. INDICATIONS : Lower abdominal pain and status post September 21, vaginal bleeding IV CONTRAST: 80 cc Omnipaque 350 (iohexol) IV ; Cumulative dose for multiple exams. ORAL CONTRAST: No oral contrast ingested. RADIATION DOSE: 6.66 CTDIvol (mGy) MEDICAL HISTORY : Renal calculi. Methicillin-resistant Staphylococcus aureus. SURGICAL HISTORY : section. ENCOUNTER: Initial ACUITY: 1 day PAIN SCALE: 9/10 LOCATION: lower quadrant abdomen TECHNIQUE: Volumetric scanning of the abdomen and pelvis was performed. Using automated exposure control and ad justment of the mA and/or kV according to patient size, radiation dose was kept as low as reasonably achievable to obtain optimal diagnostic quality images. FINDINGS: LOWER LUNGS: The visualized lower lungs are clear. LIVER: Homogeneous density without lesion. There is no dilation of the biliary tree. Gallbladder contains n umerous calcified stones.. SPLEEN: Normal size without lesion. PANCREAS: Within normal limits. KIDNEYS: Normal in size and shape. There is no mass, stone or hydronephrosis. ADRENAL GLANDS: Within normal limits. VASCULAR: Arterial structures are unremarkable. Retroaortic left renal vein. BOWEL/MESENTERY: The stomach, small bowel, and colon demonstrate no acute abnormality. There is no free intraperitone al air or fluid. ABDOMINAL WALL: Transverse anterior pelvic wall incision consistent with RETROPERITONEUM: There is no lymphadenopathy. BLADDER: Low-density filling defect along the anterior bladder dome was present previously and may be a uracha l cyst. Tiny posterior base calcific density may be a wall calcification or recently passed stone. REPRODUCTIVE: uterus with low-density endometrial contents. Low density area in the low anterior myometr ium is presumably a postoperative finding. INGUINAL: There is no lymphadenopathy or hernia. MUSCULOSKELETAL: Within normal limits for patient age. CONCLUSION: Post uterus. Bladder findings as above. Gallstones. Yakov Koo MD on October 02, 2016 at 5:46 Board Certified Radiologist. This report was verified electronically.
== END 2016-10-02 06:48 | disposition home or self-care (01) ==
LOC: NEPE 03:26
DX: N93.9 Abnormal uterine and vaginal bleeding, unspecified (principal); R07.1 Chest pain on breathing; R10.30 Lower abdominal pain, unspecified; Z87.891 Personal history of nicotine dependence; R82.90 Unspecified abnormal findings in urine; Z87.442 Personal history of urinary calculi; Z98.890 Other specified postprocedural states
CPT/HCPCS: 71275; 74177; 80053; 81001; 83690; 84484; 84703; 85025; 87086; 99284; Q9967

== ENCOUNTER 2017-02-17 16:29 | Emergency (ER) | payer SELFPAY ==
[~2017-02-17] VITALS: Ht 160 cm; Wt 70.0 kg
[2017-02-17 16:31] VITALS: BP 119/80; PULSE 88; RESP 20; TEMP 98.6; O2SAT 98
--- NOTE | 2017-02-17 16:47 | PD ---
Physical Exam Date Seen by Provider: Feb 17, 2017 Time Seen by Provider: 16:44 Narrative 26 y/o female here with lower jaw pain and swelling over the past several days. Pain worse when she tries to eat. Denies fever. Denies ST. No JAMIL. No Cough or other symptoms. Patient states taking Tylenol and ibuprofen with minimal help. Pain is 8/10. Patients VS stable. Awaiting Bed Placement. Data Data Last Documented VS Vital Signs Date Time Temp Pulse Resp B/P Pulse Ox O2 Delivery O2 Flow Rate FiO2 02/17/17 16:31 98.6 88 20 119/80 98 Room Air [facility] Medical Record Reviewed: Yes Supervised Visit with ELYSE: Yes Condition: Stable Hugo Hagen Feb 17, 2017 16:47
--- NOTE | 2017-02-17 17:21 | PD ---
HPI Chief Complaint: Oral / Dental Pain or Problem Time Seen by Provider: 17:00 Travel History International Travel<30 days: No Contact w/Intl Traveler<30days: No Traveled to known affect area: No History of Present Illness HPI Patient comes in complaining of right lower dental pain that began 2 days ago. Patient's pain is Progressively getting worse. Pain is worse with eating or drinking anything. Patient has been using [id number] Tylenol and ibuprofen with some improvement of her pain. Patient describes a throbbing aching pain that radiates throughout her mandible and into her right ear. Patient denies any difficulty swallowing, fevers, nausea, vomiting, , breast-feeding, chest pain, shortness of breath, or headaches. PFSH Past Medical History Bipolar Disorder: Yes Anxiety: Yes Diminished Hearing: No Kidney Stones: Yes Respiratory: Yes (BABY ASTHMA) : 2 Para: 2 Past Surgical History Section: Yes (X2) Tonsillectomy: Yes Social History Alcohol Use: No Tobacco Use: Yes (early in , quit at 8 weeks gestation) Substance Use: No (Marijuana ) Allergies-Medications (Allergen,Severity, Reaction): Coded Allergies: *MDRO Multi-Drug Resistant Organism (Verified Allergy, Unknown, 02/17/17) MRSA 2013 Reported Meds & Prescriptions Reported Meds & Active Scripts Active Ibuprofen 800 Mg Tab 800 Mg PO Q8H PRN Clindamycin (Clindamycin HCl) 150 Mg Cap 2 Cap PO Q6H 10 Days Review of Systems Except as stated in HPI: all other systems reviewed are Neg Physical Exam Narrative GENERAL: Well-developed, overly nourished, in no acute distress, and non-ill appearing. SKIN: Focused skin assessment warm and dry. HEAD: Atraumatic. Normocephalic. EYES: Pupils equal and round. EOMI. No scleral icterus. No injection or drainage. ENT: No nasal bleeding or discharge. Mucous membranes pink and moist. Poor dentition with no visible or palpable abscess noted. Floor the mouth, submandibular, and submental are all soft to palpation. NECK: Trachea midline. No cervical lymphadenopathy. Supple. No nuclear rigidity. RESPIRATORY: No accessory muscle use. No respiratory distress. MUSCULOSKELETAL: No obvious deformities. No clubbing. No cyanosis. No edema. Full range of motion. NEUROLOGICAL: Awake and alert. No obvious cranial nerve deficits. Motor grossly within normal limits. Normal speech. PSYCHIATRIC: Appropriate mood and affect; insight and judgment normal. Data Data Last Documented VS Vital Signs Date Time Temp Pulse Resp B/P Pulse Ox O2 Delivery O2 Flow Rate FiO2 02/17/17 16:31 98.6 88 20 119/80 98 Room Air Orders Ibuprofen (Motrin) (02/17/17 17:45) Clindamycin (Cleocin) (02/17/17 17:45) MDM Medical Decision Making Medical Screen Exam Complete: Yes Emergency Medical Condition: Yes Differential Diagnosis Dental abscess, dental infection, dentalgia, other Narrative Course The patient presented with dental pain. There is no fever. There is no significant facial swelling or evidence of cellulitis. There is poor dentition but no evidence of drainable abscess at this time. There is no evidence of significant deep or invading abscess at this time. The patient will be placed on antibiotics and pain medication. The patient was instructed to follow up with a dentist. Warnings were discussed with the patient regarding worsening of infection. The patient is to return if pain worsens, develops progressive swelling or facial redness or fever. The patient agrees with plan. Patient in no obvious distress upon re-evaluation. Patient was asked if they wanted to speak to my attending, which the patient did not wish to do at this time. Any questions/concerns in reference to patient diagnosis/condition discussed and clarified prior to patient's discharge. Reinforced sheer importance of close follow up with patient's primary physician or primary care clinic. Instructed patient to return to ED immediately, if symptoms return/ worsen. Pt showed understanding of above instructions. Further instructions and recommendations were detailed in discharge paperwork. Pt ambulated without difficulty out of ED at discharge. Diagnosis Primary Impression: Dentalgia Patient Instructions: Dental Abscess (GEN), Dental Caries (DC), General Instructions Additional Instructions: Follow-up with your primary care physician and dentist as soon as possible. Rinse mouth with warm salt water gargles. Take all medication as prescribed. Return to the emergency department if symptoms get worse. Med/Other Pt SpecificInfo: Prescription(s) given Scripts Ibuprofen 800 Mg Opc807 Mg PO Q8H PRN (PAIN SCALE 1 TO 10) #21 TAB Ref 0 Prov:Mis Marks MD 02/17/17 Clindamycin 150 Mg Cap2 Cap PO Q6H 10 Days Ref 0 Prov:Mis Marks MD 02/17/17 Disposition: 01 DISCHARGE HOME Condition: Stable Pietro Nazario Feb 17, 2017 17:21
[2017-02-17] MEDS ORDERED: CLIN1CAP5 PO (17:22)
[2017-02-17] MEDS ORDERED: IBUP800T23 PO (17:22)
[2017-02-17] MEDS ORDERED: IBUPROFEN 800 MG TAB PO ONE (17:45)
[2017-02-17] MEDS ORDERED: CLINDAMYCIN 150 MG CAP PO ONE (17:45)
== END 2017-02-17 17:52 | disposition home or self-care (01) ==
LOC: NEPD 16:29
DX: K08.89 Other specified disorders of teeth and supporting structures (principal)
CPT/HCPCS: 99283

== ENCOUNTER 2018-03-07 09:06 | Inpatient (IN) | payer MEDICAID ==
[~2018-03-07] VITALS: Ht 160 cm; Wt 85.0 kg
[~2018-03-07 09:06] MED LIST changes: -CEPH-460 PO; +CLIN150C14 PO; -IBUP-232 PO; +IBUP1TAB7 PO; -OXYC1TAB63 PO; -PREN29TA PO; -SENN1TAB PO; -SIME80CH PO
[2018-03-07 09:08] VITALS: BP 143/91; PULSE 104; RESP 16; TEMP 98.9; O2SAT 100
[2018-03-07] MEDS ORDERED: oxyCODONE/ACETAMINOPHEN 5 MG/325 MG TAB PO ONE (09:45)
--- NOTE | 2018-03-07 10:25 | PD ---
HPI Chief Complaint: Oral / Dental Pain or Problem Time Seen by Provider: 09:29 Travel History International Travel<30 days: No Contact w/Intl Traveler<30days: No Traveled to known affect area: No History of Present Illness HPI Patient is a 27 year old female who has dental swelling for the past week. States she went to [facility] a few days ago had CT and was put on antibiotics and the swelling actually got better. She noticed over the past 2 days has gotten significantly worse and hurts in her neck as well. She represented to [facility] today and was told that she needed to be transferred her for evaluation by dentist. She denies fevers, denies chest pain , denies difficulty swallowing. States culprit tooth is lower right tooth, states symptoms severe, gradually worsening, she is a smoker. PFSH Past Medical History Bipolar Disorder: Yes Anxiety: Yes Diminished Hearing: No Kidney Stones: Yes Respiratory: Yes (BABY ASTHMA) Tetanus Vaccination: > 5 Years ?: Not LMP: 03/05/18 : 2 Para: 2 Past Surgical History Section: Yes (X2) Tonsillectomy: Yes Social History Alcohol Use: No Tobacco Use: Yes Substance Use: No (Marijuana ) Allergies-Medications (Allergen,Severity, Reaction): Coded Allergies: *MDRO Multi-Drug Resistant Organism (Verified Allergy, Unknown, 03/07/18) MRSA 2013 Reported Meds & Prescriptions Reported Meds & Active Scripts Active Clindamycin (Clindamycin HCl) 150 Mg Cap 2 Cap PO Q6H 10 Days Review of Systems Except as stated in HPI: all other systems reviewed are Neg Physical Exam Narrative GENERAL: WD/WN obvious right sided facial swelling. SKIN: Warm and dry. Erythematous right sided neck and possibly small erythema to right zone 2 of neck. HEAD: Atraumatic. Normocephalic. EYES: Pupils equal and round. No scleral icterus. No injection or drainage. ENT: No nasal bleeding or discharge. Mucous membranes pink and moist. 2 finger trismus limiting evaluation of teeth. Obvious right mandibular dental abscess. NECK: Trachea midline. No JVD. There is some tenderness to right sided anterior zone 2. Perhaps minimal swelling. CARDIOVASCULAR: Regular rate and rhythm. No MGR, no Chuck's crunch. No chest wall tenderness. RESPIRATORY: No accessory muscle use. Clear to auscultation. Breath sounds equal bilaterally. GASTROINTESTINAL: Abdomen soft, non-tender, nondistended. Hepatic and splenic margins not palpable. MUSCULOSKELETAL: Extremities without clubbing, cyanosis, or edema. No obvious deformities. NEUROLOGICAL: Awake and alert. No obvious cranial nerve deficits. Motor grossly within normal limits. Five out of 5 muscle strength in the arms and legs. Normal speech. PSYCHIATRIC: Appropriate mood and affect; insight and judgment normal. Data Data Last Documented VS Vital Signs Date Time Temp Pulse Resp B/P (MAP) Pulse Ox O2 Delivery O2 Flow Rate FiO2 03/07/18 13:06 93 19 118/67 (84) 100 Room Air 03/07/18 09:08 98.9 Orders Orders Sepsis Workup Initiated (03/07/18 ) Complete Blood Count With Diff (03/07/18 09:33) Comprehensive Metabolic Panel (03/07/18 09:33) Lactic Acid Sepsis Protocol (03/07/18 09:33) Urinalysis - C+S If Indicated (03/07/18 09:33) Blood Culture (03/07/18 09:33) Chest, Single Ap (03/07/18 09:33) Ecg Monitoring (03/07/18 09:33) Iv Access Insert/Monitor (03/07/18 09:33) Oximetry (03/07/18 09:33) Oxygen Administration (03/07/18 09:33) Oxycodone-Acetamin 5-325 Mg (Percocet (03/07/18 09:45) Ct Soft Tiss Neck W Iv Cont (03/07/18 11:18) Vancomycin Inj (Vancomycin Inj) (03/07/18 11:30) Piperacil-Tazo 4.5 Gm Premix (Zosyn 4.5 (03/07/18 11:30) Urine Culture (03/07/18 10:22) Dexamethasone Inj (Decadron Inj) (03/07/18 11:45) Consult Oral, Facial Surgery (03/07/18 ) (Hub Use Only)Inp Phy Cons/Ref (03/07/18 ) Iohexol 350 Inj (Omnipaque 350 Inj) (03/07/18 12:20) Admit Order (Ed Use Only) (03/07/18 ) Labs Laboratory Tests Test 03/07/18 10:20 03/07/18 10:22 03/07/18 11:08 03/07/18 11:09 White Blood Count 17.0 TH/MM3 Red Blood Count 4.20 MIL/MM3 Hemoglobin 13.2 GM/DL Hematocrit 39.5 % Mean Corpuscular Volume 93.9 FL Mean Corpuscular Hemoglobin 31.5 PG Mean Corpuscular Hemoglobin Concent 33.5 % Red Cell Distribution Width 13.4 % Platelet Count 309 TH/MM3 Mean Platelet Volume 10.5 FL Neutrophils (%) (Auto) 77.1 % Lymphocytes (%) (Auto) 14.2 % Monocytes (%) (Auto) 7.3 % Eosinophils (%) (Auto) 1.2 % Basophils (%) (Auto) 0.2 % Neutrophils # (Auto) 13.1 TH/MM3 Lymphocytes # (Auto) 2.4 TH/MM3 Monocytes # (Auto) 1.2 TH/MM3 Eosinophils # (Auto) 0.2 TH/MM3 Basophils # (Auto) 0.0 TH/MM3 CBC Comment DIFF FINAL Differential Comment Urine Color YELLOW Urine Turbidity CLEAR Urine pH 6.0 Urine Specific [place] 1.025 Urine Protein NEG mg/dL Urine Glucose (UA) NEG mg/dL Urine Ketones NEG mg/dL Urine Occult Blood NEG Urine Nitrite NEG Urine Bilirubin NEG Urine Urobilinogen LESS THAN 2 mg/dL Urine Leukocyte Esterase NEG Urine RBC 1 /hpf Urine WBC 1 /hpf Urine Squamous Epithelial Cells 2 /hpf Urine Bacteria OCC /hpf Urine Mucus FEW /lpf Microscopic Urinalysis Comment CATH-CULTURE IND Blood Urea Nitrogen 17 MG/DL Creatinine 0.68 MG/DL Random Glucose 91 MG/DL Total Protein 6.6 GM/DL Albumin 3.1 GM/DL Calcium Level 8.6 MG/DL Alkaline Phosphatase 80 U/L Aspartate Amino Transf (AST/SGOT) 18 U/L Alanine Aminotransferase (ALT/SGPT) 19 U/L Total Bilirubin 0.2 MG/DL Sodium Level 142 MEQ/L Potassium Level 4.1 MEQ/L Chloride Level 109 MEQ/L Carbon Dioxide Level 24.8 MEQ/L Anion Gap 8 MEQ/L Estimat Glomerular Filtration Rate 105 ML/MIN Lactic Acid Level 0.7 mmol/L [facility] Medical Decision Making Medical Screen Exam Complete: Yes Emergency Medical Condition: Yes Differential Diagnosis Ludwigs angina possible but seems unlikely, facial cellulitis, dental abscess, neck mass, sepsis. Narrative Course Patient roomed in the ER, she has obvious right sided facial swelling and probable abscess. My concern in this patient is early george's angina. CT scans are ordered. patient is tachycardic and has elevated WBC. Discussed with Dr. Hernandez before CT results who recommends IV antibiotics and decadron. Agrees for hospitalization he will follow up CT's and see patient. Vancomycin and Zosyn started. She has been on antibiotics outpatient as well. CT scan shows several reactive lymphnodes and soft tissue edema. Looks like cellulitis without abscess. With smoking patient an inflammatory CA would be in the differential as well albeit much lower likelihood. May need biopsy in the future but for time being will admit for IV antibiotics. Diagnosis Primary Impression: Sepsis Additional Impression: Soft tissue infection Admitting Information Admitting Physician Requests: Admit Condition: Stable Rajan Carlin MD Mar 07, 2018 10:25
--- NOTE | 2018-03-07 10:38 | RADRPT ---
EXAM DATE: 03/07/2018 10:07 AM EDT AGE/SEX: 27 years / Female INDICATIONS: Fever. Facial swelling. CLINICAL DATA: This is the patient's initial encounter. Patient reports that signs and symptoms have been present for 3 days and indicates a pain score of 0/10. MEDICAL/SURGICAL HISTORY: . Renal calculi. Methicillin-resistant Staphylococcus aureus. . Lc arean section. [place] [facility] [place]. . FINDINGS: There is increased linear densities seen at the right base just above the hemidiaphragm. The left kingsley g is clear. The heart size is normal. CONCLUSION: Right basilar atelectasis or consolidation. Electronically signed by: Yakov Saravia MD 03/07/2018 10:36 AM EDT
[2018-03-07 11:01] LABS: AUTOMATED NEUTROPHIL # 13.1 TH/MM3 (1.8-7.7); BASOPHIL % 0.2 % (0.0-2.0); EOSINOPHIL # 0.2 TH/MM3 (0-0.4); EOSINOPHIL % 1.2 % (0.0-4.0); HEMATOCRIT 39.5 % (35.0-46.0); HEMOGLOBIN 13.2 GM/DL (11.6-15.3); LYMPH % 14.2 % (9.0-44.0); LYMPHOCYTE # 2.4 TH/MM3 (1.0-4.8); MEAN CELL VOLUME 93.9 FL (80.0-100.0); MEAN CORPUSCULAR HEMOGLOBIN 31.5 PG (27.0-34.0); MEAN CORPUSCULAR HGB CONC 33.5 % (32.0-36.0); MEAN PLATELET VOLUME 10.5 FL (7.0-11.0); MONO % 7.3 % (0.0-8.0); MONOCYTE # 1.2 TH/MM3 (0-0.9); NEUT % 77.1 % (16.0-70.0); PLATELET COUNT 309 TH/MM3 (150-450); RED CELL DISTRIBUTION WIDTH 13.4 % (11.6-17.2)
[2018-03-07 11:22] LABS: BACTERIA, URINE OCC /hpf; BILIRUBIN, URINE NEG (NEG); BLOOD, URINE NEG (NEG); GLUCOSE,URINE NEG (NEG); KETONE, URINE NEG (NEG); MUCUS URINE FEW /lpf (OCC); NITRITE,URINE NEG (NEG); SQUAMOUS EPITHELIAL CELL URINE 2 /hpf (0-5); URINE COLOR YELLOW (YELLW/STRAW); URINE LEUKOCYTE ESTERASE NEG (NEG)
[2018-03-07] MEDS ORDERED: PIPERACIL-TAZO 4.5 GM PREMIX 100 ML IV ONE (11:30)
[2018-03-07] MEDS ORDERED: VANCOMYCIN INJ 1,000 MG in SODIUM CHLOR 0.9% 250 ML INJ 250 ML IV ONE (11:30)
[2018-03-07] MEDS ORDERED: DEXAMETHASONE SOD PHOS 20 MG/5 ML VIAL IV PUSH ONE (11:45)
[2018-03-07 11:58] LABS: ALKALINE PHOSPHATASE 80 U/L (45-117); TOTAL BILIRUBIN ADULT 0.2 MG/DL (0.2-1.0); TOTAL PROTEIN 6.6 GM/DL (6.4-8.2)
[2018-03-07 12:04] LABS: ALBUMIN 3.1 GM/DL (3.4-5.0); ALT (GPT) 19 U/L (10-53); AST (GOT) 18 U/L (15-37); BICARBONATE 24.8 MEQ/L (21.0-32.0); BLOOD UREA NITROGEN 17 MG/DL (7-18); CALCIUM 8.6 MG/DL (8.5-10.1); CHLORIDE 109 MEQ/L (98-107); CREATININE 0.68 MG/DL (0.50-1.00); GLOMERULAR FILTRATION RATE 105 ML/MIN (>89); GLUCOSE,RANDOM 91 MG/DL (74-106); SODIUM (NA) 142 MEQ/L (136-145)
[2018-03-07] MEDS ORDERED: IOHEXOL 350 MG/ML 10 ML VIAL (for RAD DIAG) IVCONTRAST ONE (12:20)
--- NOTE | 2018-03-07 12:54 | RADRPT ---
EXAM DATE: 03/07/2018 12:27 PM EDT AGE/SEX: 27 years / Female INDICATIONS: Right side facial and neck swelling. CLINICAL DATA: This is the patient's initial encounter. Patient reports that signs and symptoms have been present for 1 week and indicates a pain score of 8/10. MEDICAL/SURGICAL HISTORY: None. Tonsillectomy. RADIATION DOSE: 14.23 CTDI (mGy) COMPARISON: No prior exams available for comparison. TECHNIQUE: Helical acquisition was performed using a multirow detector CT scanner during the adminis tration of 69 ml Omnipaque 350 (iohexol) nonionic water-soluble contrast as a single exam dose. Usi ng automated exposure control and adjustment of the mA and/or kV according to patient size, radiation dose was kept as low as reasonably achievable to obtain optimal diagnostic quality images. DICOM fo rmat image data is available electronically for review and comparison. FINDINGS: Nasopharynx: The nasopharyngeal airway has a normal configuration. No mucosal thickening or mass is seen. Oropharynx: The intrinsic muscles of the tongue are symmetric. The tonsillar pillars are intact. T he prevertebral soft tissues are not thickened. Larynx: The supraglottic, glottic, and infraglottic structures are intact. Parapharyngeal: The parapharyngeal space is intact. Salivary Glands: The parotid and submandibular glands are intact. Lymph Nodes: There is a nonspecific prominent homogeneous lymph node along the right side of the nec k just anterior to the right submandibular gland measuring 1.5 cm. A few smaller nonspecific lymph no edmund are seen just underneath the midline portion of the mandible measuring about 1 cm or less in size . A few mildly prominent enlarged lymph nodes are seen along the right carotid chain.. There is diffu se nonspecific soft tissue swelling and edema along the right side of face. No loculated fluid collec tions are demonstrated. The bony structures of the right mandible appear to be grossly intact. Thyroid: Homogeneous enhancement without evidence of nodule. Bones: The bony structures appear to be grossly intact. CONCLUSION: 1. There is diffuse nonspecific soft tissue swelling and edema in the subcutaneous soft tissues donato g the right side of the face adjacent to the right mandible. No drainable or loculated fluid collecti ons are seen. However, there is some nonspecific adenopathy along the right side of the neck in the l ocation of the diffuse inflammatory changes most likely representing reactive adenopathy.. The most p rominent lymph node measures approximately 1.5 cm just anterior to the right submandibular gland. The re are some mildly prominent lymph nodes in the submental location as well as along the right carotid chain. Electronically signed by: Campbell Kelly MD 03/07/2018 12:53 PM EDT
[2018-03-07 13:06] VITALS: BP 118/67; PULSE 93; RESP 19; O2SAT 100
--- NOTE | 2018-03-07 13:55 | HHI.HP ---
[facility] No Primary Care Physician Admission Diagnosis Sepsis, Facial Cellulitis. Diagnoses: (1) Leukocytosis (2) Marijuana use (3) Tobacco abuse (4) Tobacco abuse counseling (5) Community acquired pneumonia (6) Sepsis Chief Complaint: Right facial swelling Travel History International Travel<30 Days: No Contact w/Intl Traveler <30 Da: No Traveled to Known Affected Are: No Sepsis Criteria SIRS Criteria (2 or more): Heart rate over 90, WBC > 80471, < 4000 or > 10% bands Sepsis Criteria (SIRS+source): Infect source susp/known Criteria Outcome: Meets sepsis criteria History of Present Illness 27-year-old female with no significant past medical history presented to the emergency department for evaluation of right facial swelling times 1 week duration, rated 10 out of 10 in intensity with associated drooling initially. Patient currently denies any dental decay or caries. Patient was seen in an outside facility where a CT neck was obtained and patient prescribed oral antibiotics, Augmentin however which patient went unable to fill. She was switched to clindamycin yesterday. Patient stated over 3 days ago she had worsening swelling associated with shortness of breath. Denies any febrile episode. On initial admission, patient was tachycardic however afebrile. WBC was elevated but lactic acid which normal limit. CT neck with right mandibular swelling without any evidence of abscess. Patient treated with vancomycin, Zosyn IV x1 in ED and a call was placed to oral facial surgeon. Review of Systems Except as stated in HPI: all other systems reviewed are Neg Past Family Social History Past Medical History Bipolar Disorder: Yes Anxiety: Yes Diminished Hearing: No Kidney Stones: Yes Respiratory: Yes (BABY ASTHMA) Tetanus Vaccination: > 5 Years Past Surgical History Section: Yes (X2) Tonsillectomy: Yes Reported Medications Clindamycin (Clindamycin HCl) 150 Mg Cap 2 Cap PO Q6H 10 Days Allergies: Coded Allergies: *MDRO Multi-Drug Resistant Organism (Verified Allergy, Unknown, 03/07/18) MRSA 2013 Family History Father from complication of pancreatic cancer, colon cancer. He also had a history of diabetes type 1. Mother with a history of diabetes type 1 Social History Alcohol Use: No Tobacco Use: Yes Substance Use: No (Marijuana ) Physical Exam Vital Signs Vital Signs Date Time Temp Pulse Resp B/P (MAP) Pulse Ox O2 Delivery O2 Flow Rate FiO2 03/07/18 13:06 93 19 118/67 (84) 100 Room Air 03/07/18 10:26 98 Room Air 03/07/18 09:08 98.9 104 16 143/91 (108) 100 Physical Exam GENERAL: This is a well-nourished, well-developed patient, in no apparent distress. SKIN: No rashes, ecchymoses or lesions. Cool and dry. HEAD: Atraumatic. Normocephalic. No temporal or scalp tenderness. EYES: Pupils equal round and reactive. Extraocular motions intact. No scleral icterus. No injection or drainage. ENT: Nose without bleeding, purulent drainage or septal hematoma. Extensive right facial swelling with palpable submandibular gland NECK: Trachea midline. No JVD or lymphadenopathy. Supple, nontender, no meningeal signs. CARDIOVASCULAR: Regular rate and rhythm without murmurs, gallops, or rubs. RESPIRATORY: Clear to auscultation. Breath sounds equal bilaterally. No wheezes , rales, or rhonchi. GASTROINTESTINAL: Abdomen soft, non-tender, nondistended. No hepato-splenomegaly , or palpable masses. No guarding. MUSCULOSKELETAL: Extremities without clubbing, cyanosis, or edema. No joint tenderness, effusion, or edema noted. No calf tenderness. Negative Homans sign bilaterally. NEUROLOGICAL: Awake and alert. Cranial nerves II through XII intact. Motor and sensory grossly within normal limits. Five out of 5 muscle strength in all muscle groups. Normal speech. Laboratory Laboratory Tests Test 03/07/18 10:20 03/07/18 10:22 03/07/18 11:08 03/07/18 11:09 White Blood Count 17.0 Red Blood Count 4.20 Hemoglobin 13.2 Hematocrit 39.5 Mean Corpuscular Volume 93.9 Mean Corpuscular Hemoglobin 31.5 Mean Corpuscular Hemoglobin Concent 33.5 Red Cell Distribution Width 13.4 Platelet Count 309 Mean Platelet Volume 10.5 Neutrophils (%) (Auto) 77.1 Lymphocytes (%) (Auto) 14.2 Monocytes (%) (Auto) 7.3 Eosinophils (%) (Auto) 1.2 Basophils (%) (Auto) 0.2 Neutrophils # (Auto) 13.1 Lymphocytes # (Auto) 2.4 Monocytes # (Auto) 1.2 Eosinophils # (Auto) 0.2 Basophils # (Auto) 0.0 CBC Comment DIFF FINAL Differential Comment Urine Color YELLOW Urine Turbidity CLEAR Urine pH 6.0 Urine Specific [place] 1.025 Urine Protein NEG Urine Glucose (UA) NEG Urine Ketones NEG Urine Occult Blood NEG Urine Nitrite NEG Urine Bilirubin NEG Urine Urobilinogen LESS THAN 2 Urine Leukocyte Esterase NEG Urine RBC 1 Urine WBC 1 Urine Squamous Epithelial Cells 2 Urine Bacteria OCC Urine Mucus FEW Microscopic Urinalysis Comment CATH-CULTURE IND Blood Urea Nitrogen 17 Creatinine 0.68 Random Glucose 91 Total Protein 6.6 Albumin 3.1 Calcium Level 8.6 Alkaline Phosphatase 80 Aspartate Amino Transf (AST/SGOT) 18 Alanine Aminotransferase (ALT/SGPT) 19 Total Bilirubin 0.2 Sodium Level 142 Potassium Level 4.1 Chloride Level 109 Carbon Dioxide Level 24.8 Anion Gap 8 Estimat Glomerular Filtration Rate 105 Lactic Acid Level 0.7 Date/Time Source Procedure Growth Status 03/07/18 10:20 Blood Peripheral Aerobic Blood Culture Pending Received 03/07/18 10:20 Blood Peripheral Anaerobic Blood Culture Pending Received 03/07/18 10:22 Urine Clean Catch Urine Culture Pending Received Result Diagram: 03/07/18 1020 03/07/18 1108 Imaging Last Impressions Neck CT 03/07/18 1118 Signed Impressions: CONCLUSION: 1. There is diffuse nonspecific soft tissue swelling and edema in the subcutan eous soft tissues along the right side of the face adjacent to the right mandib le. No drainable or loculated fluid collections are seen. However, there is chin e nonspecific adenopathy along the right side of the neck in the location of th e diffuse inflammatory changes most likely representing reactive adenopathy.. T he most prominent lymph node measures approximately 1.5 cm just anterior to the right submandibular gland. There are some mildly prominent lymph nodes in the submental location as well as along the right carotid chain. Chest X-Ray 03/07/18 0962 Signed Impressions: CONCLUSION: Right basilar atelectasis or consolidation. Septic Shock Reassessment Septic shock perfusion: reassessment completed Caprini VTE Risk Assessment Caprini VTE Risk Assessment: No/Low Risk (score <= 1) Caprini Risk Assessment Model Point Value = 1 Point Value = 2 Point Value = 3 Point Value = 5 Age 41-60 Minor surgery BMI > 25 kg/m2 Swollen legs Varicose veins or History of unexplained or recurrent spontaneous Oral contraceptives or hormone replacement Sepsis (< 1 month) Serious lung disease, including pneumonia (< 1 month) Abnormal pulmonary function Acute myocardial infarction Congestive heart failure (< 1 month) History of inflammatory bowel disease Medical patient at bed rest Age 61-74 Arthroscopic surgery Major open surgery (> 45 min) Laparoscopic surgery (> 45 min) Malignancy Confined to bed (> 72 hours) Immobilizing plaster cast Central venous access Age >= 75 History of VTE Family history of VTE Factor V Leiden Prothrombin [id number] Lupus anticoagulant Anticardiolipin antibodies Elevated serum homocysteine Heparin-induced thrombocytopenia Other congenital or acquired thrombophilia Stroke (< 1 month) Elective arthroplasty Hip, pelvis, or leg fracture Acute spinal cord injury (< 1 month) Prophylaxis Regimen Total Risk Factor Score Risk Level Prophylaxis Regimen 0-1 Low Early ambulation 2 Moderate Order ONE of the following: *Sequential Compression Device (SCD) *Heparin 5000 units SQ BID 3-4 Higher Order ONE of the following medications: *Heparin 5000 units SQ TID *Enoxaparin/Lovenox 40 mg SQ daily (WT < 150 kg, CrCl > 30 mL/min) *Enoxaparin/Lovenox 30 mg SQ daily (WT < 150 kg, CrCl > 10-29 mL/min) *Enoxaparin/Lovenox 30 mg SQ BID (WT < 150 kg, CrCl > 30 mL/min) AND/OR *Sequential Compression Device (SCD) 5 or more Highest Order ONE of the following medications: *Heparin 5000 units SQ TID (Preferred with Epidurals) *Enoxaparin/Lovenox 40 mg SQ daily (WT < 150 kg, CrCl > 30 mL/min) *Enoxaparin/Lovenox 30 mg SQ daily (WT < 150 kg, CrCl > 10-29 mL/min) *Enoxaparin/Lovenox 30 mg SQ BID (WT < 150 kg, CrCl > 30 mL/min) AND *Sequential Compression Device (SCD) Assessment and Plan Problem List: (1) Sepsis ICD Code: A41.9 - Sepsis, unspecified organism (2) Community acquired pneumonia ICD Code: J18.9 - Pneumonia, unspecified organism (3) Tobacco abuse counseling ICD Code: Z71.6 - Tobacco abuse counseling (4) Tobacco abuse ICD Code: Z72.0 - Tobacco use (5) Leukocytosis ICD Code: D72.829 - Elevated white blood cell count, unspecified Assessment and Plan 27 years female with Sepsis: Heart rate over 90, WBC > 89153, < 4000 or > 10% bands. Secondary to right facial abscess. Status post vancomycin and Zosyn IV x1 in ED. Continue with current antibiotics and monitor culture Right mandibular soft tissue swelling/abscess? CT neck noted and review with finding of right mandibular soft tissue swelling s/p Zosyn and Vancomycin IV x 1; continue with antibiotics IV pending culture reports Start Decadron 4mg IV 8H, Peridex OMFS consultation pending Right lung consolidation per CT Continue with IV antibiotic Tobacco abuse Tobacco counseling cessation provided Patient declined nicotine patch Marijuana abuse Counseling cessation provided DVT prophylaxis: Low risk for VT E GI prophylaxis: PPI Code Status Full code Discussed Condition With ED physician, patient Physician Certification 2 Midnight Certification Type: Admission for Inpatient Services Order for Inpatient Services The services are ordered in accordance with Medicare regulations or non- Medicare payer requirements, as applicable. In the case of services not specified as inpatient-only, they are appropriately provided as inpatient services in accordance with the 2-midnight benchmark. Estimated LOS (days): 2 days is the estimated time the patient will need to remain in the hospital, assuming treatment plan goals are met and no additional complications. Post-Hospital Plan: Not yet determined Viktor Funez MD Mar 07, 2018 13:55
[2018-03-07] MEDS ORDERED: SODIUM CHLORIDE 0.9% FLUSH 10 ML FLUSH IV FLUSH PRN (14:00)
[2018-03-07] MEDS ORDERED: NALOXONE HCL 0.4 MG/ML AMP IV PUSH PRN (14:00)
[2018-03-07] MEDS ORDERED: KETOROLAC TROMETHAMINE 30 MG/ML (IVP) VIAL IV PUSH PRN (14:00)
[2018-03-07] MEDS ORDERED: MAGNESIUM HYDROXIDE SUSP 30 ML CUP PO PRN (14:00)
[2018-03-07] MEDS ORDERED: ONDANSETRON ODT 4 MG TAB PO PRN (14:00)
[2018-03-07] MEDS ORDERED: ACETAMINOPHEN 325 MG TAB PO PRN ×2 (14:00)
[2018-03-07] MEDS ORDERED: Vancomycin Consult Pharmacy 1 EA OTHER SCH (15:15)
[2018-03-07] MEDS: KETOROLAC TROMETHAMINE 30 MG/ML (IVP) VIAL IV PUSH PRN ×2 (16:00→21:36)
[2018-03-07 18:30] VITALS: BP 100/64; PULSE 103; RESP 16; TEMP 97.5; O2SAT 95
[2018-03-07] MEDS: CHLORHEXIDINE GLUCONATE 0.12% 15 ML CUP SWISH-SPIT SCH (19:16)
[2018-03-07] MEDS ORDERED: DEXAMETHASONE SOD PHOS 4 MG/ML VIAL IV PUSH SCH (20:00)
[2018-03-07 20:30] VITALS: BP 118/66; PULSE 86; RESP 20; TEMP 98; O2SAT 96
[2018-03-07] MEDS ORDERED: SODIUM CHLORIDE 0.9% FLUSH 10 ML FLUSH IV FLUSH SCH (21:00)
[2018-03-07] MEDS ORDERED: TEMAZEPAM 15 MG CAP PO PRN (21:00)
[2018-03-07] MEDS: PIPERACIL-TAZO 3.375 GM PREMIX 50 ML IV SCH (21:31)
[2018-03-07] MEDS: VANCOMYCIN 1,000 MG/NS 250 ML IV SCH ×2 (21:32)
[2018-03-07] MEDS: DEXAMETHASONE SOD PHOS 4 MG/ML VIAL IV PUSH SCH (21:37)
[2018-03-07] MEDS: LACTOBACILLUS ACIDOPHILUS TAB PO SCH (21:38)
[2018-03-08 00:40] VITALS: BP 115/70; PULSE 86; RESP 19; TEMP 97.3; O2SAT 97
[2018-03-08] MEDS: PIPERACIL-TAZO 3.375 GM PREMIX 50 ML IV SCH (04:29)
[2018-03-08] MEDS: VANCOMYCIN 1,000 MG/NS 250 ML IV SCH ×2 (04:29)
[2018-03-08] MEDS: KETOROLAC TROMETHAMINE 30 MG/ML (IVP) VIAL IV PUSH PRN (04:30)
[2018-03-08] MEDS: DEXAMETHASONE SOD PHOS 4 MG/ML VIAL IV PUSH SCH (04:30)
[2018-03-08 05:00] VITALS: BP 127/70; PULSE 98; RESP 19; TEMP 98; O2SAT 96
[2018-03-08 08:32] VITALS: BP 109/56; PULSE 79; RESP 18; TEMP 98.1; O2SAT 98
[2018-03-08] MEDS ORDERED: Vancomycin Consult Pharmacy 1 EA OTHER SCH (08:45)
[2018-03-08] MEDS ORDERED: PANTOPRAZOLE SOD 40 MG DELAYED RELEASE TAB PO SCH (09:00)
[2018-03-08] MEDS ORDERED: VANCOMYCIN INJ 1,250 MG in SODIUM CHLOR 0.9% 250 ML INJ 250 ML IV SCH (09:00)
[2018-03-08] MEDS: CHLORHEXIDINE GLUCONATE 0.12% 15 ML CUP SWISH-SPIT SCH (09:37)
[2018-03-08] MEDS: LACTOBACILLUS ACIDOPHILUS TAB PO SCH (09:38)
[2018-03-08] MEDS ORDERED: PHARMACY ORDERED LAB ONE (09:45)
--- NOTE | 2018-03-08 11:33 | HHI.PR ---
Subjective Remarks Follow-up sepsis/right facial abscess Patient seen and examined; reported improvement of right facial swelling however states she wanted to leave AMA to be with her family Objective Vitals Vital Signs Date Time Temp Pulse Resp B/P (MAP) Pulse Ox O2 Delivery O2 Flow Rate FiO2 03/08/18 08:32 98.1 79 18 109/56 (73) 98 03/08/18 05:00 98.0 98 19 127/70 (89) 96 03/08/18 00:40 97.3 86 19 115/70 (85) 97 03/07/18 20:30 98.0 86 20 118/66 (83) 96 03/07/18 18:30 97.5 103 16 100/64 (76) 95 03/07/18 18:12 03/07/18 18:00 19 03/07/18 13:06 93 19 118/67 (84) 100 Room Air I/O 03/07/18 03/07/18 03/07/18 03/08/18 03/08/18 03/08/18 07:00 15:00 23:00 07:00 15:00 23:00 Intake Total 350 ml 1025 ml 1300 ml Balance 350 ml 1025 ml 1300 ml Intake Oral 1025 ml 1300 ml IV Total 350 ml # Voids 2 3 # Bowel Movements 0 0 Result Diagram: 03/07/18 1020 03/07/18 1108 Imaging Last Impressions Neck CT 03/07/18 1118 Signed Impressions: CONCLUSION: 1. There is diffuse nonspecific soft tissue swelling and edema in the subcutan eous soft tissues along the right side of the face adjacent to the right mandib le. No drainable or loculated fluid collections are seen. However, there is chin e nonspecific adenopathy along the right side of the neck in the location of th e diffuse inflammatory changes most likely representing reactive adenopathy.. T he most prominent lymph node measures approximately 1.5 cm just anterior to the right submandibular gland. There are some mildly prominent lymph nodes in the submental location as well as along the right carotid chain. Chest X-Ray 03/07/18 0933 Signed Impressions: CONCLUSION: Right basilar atelectasis or consolidation. Objective Remarks GENERAL: NAD SKIN: Warm and dry. Right mandibular region/area swelling HEAD: Normocephalic. EYES: No scleral icterus. No injection or drainage. NECK: Supple, trachea midline. No JVD or lymphadenopathy. CARDIOVASCULAR: Regular rate and rhythm without murmurs, gallops, or rubs. RESPIRATORY: Breath sounds equal bilaterally. No accessory muscle use. GASTROINTESTINAL: Abdomen soft, non-tender, nondistended. MUSCULOSKELETAL: No cyanosis, or edema. BACK: Nontender without obvious deformity. No CVA tenderness. A/P Problem List: (1) Sepsis ICD Code: A41.9 - Sepsis, unspecified organism (2) Community acquired pneumonia ICD Code: J18.9 - Pneumonia, unspecified organism (3) Tobacco abuse counseling ICD Code: Z71.6 - Tobacco abuse counseling (4) Tobacco abuse ICD Code: Z72.0 - Tobacco use (5) Leukocytosis ICD Code: D72.829 - Elevated white blood cell count, unspecified Assessment and Plan 27 years female with Sepsis: Heart rate over 90, WBC > 93429, < 4000 or > 10% bands. Secondary to right facial abscess. Status post vancomycin and Zosyn IV x1 in ED. Continue with current antibiotics and monitor culture Right mandibular soft tissue swelling/abscess? CT neck noted and review with finding of right mandibular soft tissue swelling s/p Zosyn and Vancomycin IV x 1; continue with antibiotics IV pending culture reports Continue Decadron 4mg IV 8H, Peridex OMFS consultation pending Right lung consolidation per CT Continue with IV antibiotic Tobacco abuse Tobacco counseling cessation provided Patient declined nicotine patch Marijuana abuse Counseling cessation provided DVT prophylaxis: Low risk for VT E GI prophylaxis: PPI Viktor Funez MD Mar 08, 2018 11:33
--- NOTE | 2018-03-08 11:35 | PD.AMA ---
Against Medical Advice Note Discharge Disposition: Against Medical Advice AMA Statement Patient Shaila Richardson has decided to leave the hospital against medical advice. This patient has the capacity to refuse care and understands the risks of leaving, including permanent disability and/or , and has had an opportunity to ask questions about her condition. The patient has been informed that she may return for care at any time, and follow up has been arranged/ advised. Viktor Funez MD Mar 08, 2018 11:35
== END 2018-03-08 10:50 | disposition left against medical advice (07) | DRG 871 ==
LOC: NEPD 09:06 → NEDA 13:42 → N05B 18:07 → UNDODISIN 18:12 → N05A 18:23
PROVIDERS: ADMIT Hospitalist; ATTEND Hospitalist
DX: A41.9 Sepsis, unspecified organism (principal); J18.9 Pneumonia, unspecified organism; L03.211 Cellulitis of face; L02.01 Cutaneous abscess of face; K08.89 Other specified disorders of teeth and supporting structures; R59.9 Enlarged lymph nodes, unspecified; F41.9 Anxiety disorder, unspecified; F31.9 Bipolar disorder, unspecified; F12.10 Cannabis abuse, uncomplicated; F17.200 Nicotine dependence, unspecified, uncomplicated; Z83.3 Family history of diabetes mellitus; Z87.442 Personal history of urinary calculi; Z80.0 Family history of malignant neoplasm of digestive organs; Z86.14 Personal history of Methicillin resistant Staphylococcus aureus infection
CPT/HCPCS: 70491; 71045; 76937; 80053; 81001; 83605; 85025; 87040; 87086; 96365; 96367; 96375; J1100; J1885; J2543; J3370; J7050; Q9967